=== PATIENT | male | born 1985 | race Caucasian/White ===

== ENCOUNTER 2016-08-13 03:41 | Emergency (ER) | payer SELFPAY ==
[2016-08-13] MEDS ORDERED: IOPAMIDOL 300 (61%) 100 ML VIAL IV ONE (03:42)
[2016-08-13 04:10] LABS: ABSOLUTE NEUTROPHIL COUNT 8.5 K/mm3 (1.8-7.7); BASO % 0.3 % (0.2-1.0); EOS % 0.2 % (0.9-2.9); HEMATOCRIT 45.3 % (32.0-52.0); HEMOGLOBIN 16.5 gm/l (14.0-18.0); IMM NEUT # 0.1 K/mm3 (0-0.2); IMM NEUT% 0.4 % (0-1); LYMPH % 17.6 % (15-45); MEAN CELL VOLUME 84.5 fl (80.0-94.0); MEAN CORPUSCULAR HEMOGLOBIN 30.8 pg (27.0-31.0); MEAN CORPUSCULAR HGB CONC 36.4 g/dl (33.0-37.0); MEAN PLATELET VOLUME 11.7 fl (7.4-10.4); MONO % 8.5 % (4-12); PLATELET COUNT 230 K/mm3 (130-400); RED CELL DISTRIBUTION WIDTH 11.9 % (11.5-14.5)
[2016-08-13] MEDS ORDERED: ONDANSETRON 4 MG/2ML 2 ML VIAL ONE ×2 (04:18→04:52)
[2016-08-13] MEDS ORDERED: HYDROMORPHONE HCL 1 MG/ML SYRINGE ONE ×2 (04:18→06:36)
[2016-08-13 04:28] LABS: ALB/GLOB RATIO 1.5 (>1.0); ALBUMIN 4.8 gm/dL (3.5-5.7); CALCIUM 10.1 mg/dL (8.6-10.3)
[2016-08-13] MEDS ORDERED: SODIUM CHLORIDE 0.9% 2,000 ML ONE (04:52)
[2016-08-13] MEDS ORDERED: PANTOPRAZOLE SODIUM 40 MG VIAL IV ONE (04:52)
[2016-08-13] MEDS ORDERED: SODIUM CHLORIDE 0.9% 1,000 ML ONE (04:58)
--- NOTE | 2016-08-13 08:38 | CT ---
Exam Type: ABD/PELVIS W/ CON Date and Time: 08/13/2016 6:04 AM Clinical information: Abdomen pain. Comparison: 09/06/2008. Procedure: Imaging device: Libr[employer]one Aquilion [address] scanner 1 mm axial images were obtained through the abdomen and pelvis. Stacked reconstructed 3, 4 and 5 mm images were photographed in the axial coronal and sagittal planes. No oral contrast was utilized for this examination. 100 ml of Isovue-300 was injected intravenously. Exam: with intravenous contrast. FINDINGS: Lung bases:The visualized lung bases appear to be appropriate with no mass, effusion or consolidation visualized. Liver: the liver is homogeneous with no discrete abnormality visualized. No definite findings of biliary dilatation are observed. Spleen: The spleen is homogeneous and does not appear to be enlarged. Gallbladder: The gallbladder is mildly distended though no adjacent inflammatory stranding is observed. Pancreas: Normal without enlargement or evidence of adjacent inflammatory changes. Adrenal glands: Normal without enlargement or evidence of adjacent inflammatory changes. Abdominal aorta: The aorta is of normal caliber and appears to be without significant atherosclerotic disease. Kidneys: The kidneys appear to be symmetric in size with no perinephric inflammatory changes are identified. No current findings of hydronephrosis are seen. Bowel structures: A few distal colonic diverticula are identified without associated inflammatory stranding. No evidence of obstruction is seen. No mesenteric inflammatory stranding or free fluid is seen within the remainder of the abdomen or pelvis. Appendix: The appendix is well-visualized and appears to be of normal caliber. No periappendiceal inflammatory changes or CT findings of appendicitis are currently observed. Bladder: The bladder is of normal contour. No wall thickening or significant distention is observed. Hernia: No abdominal wall or inguinal hernia is visualized on this examination. Adenopathy: A few nonenlarged mesenteric lymph nodes are seen within the right lower quadrant. Osseous structures: There is a small sclerotic focus identified within the inferior left ischium this likely reflects a bone island and was evident on prior examination of 2008. Pelvic structures: No discrete pelvic abnormalities are visualized in this examination. IMPRESSION: 1. A normal appearance of the appendix without CT evidence of appendicitis. 2. Scattered colonic diverticulosis without evidence to suggest diverticulitis. 3. A probable bone island within the left ischium, stable from the prior exam of 2008.
== END 2016-08-13 09:20 | disposition home or self-care (01) ==
LOC: ED 03:41
DX: R10.84 Generalized abdominal pain (principal); R11.2 Nausea with vomiting, unspecified
CPT/HCPCS: 83690; 85025; 80053; 74177; 96375 ×2; 96376; 99284 ×2; 96374; 96361 ×2; J1170 ×2; C9113; J2405 ×2; J7030 ×2; Q9967

== ENCOUNTER 2016-08-13 22:30 | Emergency (ER) | payer SELFPAY ==
[2016-08-14] MEDS ORDERED: ONDANSETRON 4 MG/2ML 2 ML VIAL ONE ×3 (01:04→03:06)
[2016-08-14] MEDS ORDERED: SODIUM CHLORIDE 0.9% 1,000 ML ONE ×2 (01:04→02:25)
[2016-08-14] MEDS ORDERED: PANTOPRAZOLE SODIUM 40 MG VIAL IV ONE (01:05)
[2016-08-14] MEDS ORDERED: DICYCLOMINE HCL 10 MG CAPSULE ONE (01:14)
[2016-08-14 01:22] LABS: ABSOLUTE NEUTROPHIL COUNT 6.5 K/mm3 (1.8-7.7); BASO % 0.3 % (0.2-1.0); EOS % 0.1 % (0.9-2.9); HEMATOCRIT 39.5 % (32.0-52.0); HEMOGLOBIN 14.2 gm/l (14.0-18.0); IMM NEUT% 0.3 % (0-1); LYMPH # 1.3 (1.0-4.8); LYMPH % 14.7 % (15-45); MEAN CELL VOLUME 85.9 fl (80.0-94.0); MEAN CORPUSCULAR HEMOGLOBIN 30.9 pg (27.0-31.0); MEAN CORPUSCULAR HGB CONC 35.9 g/dl (33.0-37.0); MEAN PLATELET VOLUME 11.5 fl (7.4-10.4); MONO # 0.8 (0.0-0.8); MONO % 9.4 % (4-12); NEUT % 75.2 % (43-75); PLATELET COUNT 185 K/mm3 (130-400); RED CELL DISTRIBUTION WIDTH 11.9 % (11.5-14.5)
[2016-08-14 01:36] LABS: ALB/GLOB RATIO 1.5 (>1.0); CALCIUM 9.1 mg/dL (8.6-10.3)
[2016-08-14 02:22] LABS: URINE BILIRUBIN NEGATIVE (NEGATIVE); URINE BLOOD NEGATIVE (NEGATIVE); URINE GLUCOSE (UA) NEGATIVE (NEGATIVE); URINE LEUKOCYTE ESTERASE NEGATIVE (NEGATIVE); URINE NITRITE NEGATIVE (NEGATIVE); URINE PROTEIN TRACE (NEGATIVE); URINE UROBILINOGEN NORMAL (0-1 mg/dl)
[2016-08-14 02:23] LABS: URINE APPEARANCE CLEAR; URINE COLOR AMBER
[2016-08-14 02:40] LABS: AMPHETAMINES/METHAMPHETAMINES NEGATIVE (NEGATIVE); COCAINE NEGATIVE (NEGATIVE); MARIJUANA NEGATIVE (NEGATIVE); METHADONE NEGATIVE (NEGATIVE); OPIATES NEGATIVE (NEGATIVE); TRICYCLIC ANTIDEPRESSANTS NEGATIVE (NEGATIVE)
[2016-08-14] MEDS ORDERED: MAALOX/LIDO2%VISC/SIMETHICONE 40 ML BOT ONE (02:57)
--- NOTE | 2016-08-14 06:37 | US ---
Name: XI FLOR Exam: Gallbladder Ultrasound Comparison: None Clinical History: Abdominal pain with nausea and vomiting Findings: Ultrasound of the gallbladder was performed. Gallbladder is 5.1 cm in greatest dimension. Gallbladder wall thickness is mildly prominent 0.31 cm there is no sludge or stones and no pericholecystic fluid. Common bile duct is normal at 4 mm. Impression: Normal Gallbladder Ultrasound Note: Findings were transmitted to the emergency department from [place] at 0217 hours
== END 2016-08-14 04:11 | disposition home or self-care (01) ==
LOC: ED 22:30
DX: K29.70 Gastritis, unspecified, without bleeding (principal)
CPT/HCPCS: 83605; 83690; 85025; 80305; 80053; 80307; 81003; 76705; 96375; 96376; 99284; 96374; 96361; 99283; A9270 ×2; C9113; J2405 ×3; J7030 ×2